=== PATIENT | male | born 1965 | race Caucasian/White ===

== ENCOUNTER 2017-12-31 13:04 | Day surgery (SDC) | payer OTHER ==
[~2017-12-31 13:04] MED LIST: CEFAZOLIN 2 GM/50 ML (PMX) 50 ML IVPB; DEXAMETHASONE 4 MG/ML 1 ML INJ; METOCLOPRAMIDE 10 MG INJ; SOD CHLORIDE 0.9% 1,000 ML IV
[2017-12-31] MEDS ORDERED: LIDOCAINE 2% (SDV) 5 ML INJ (15:51)
[2017-12-31] MEDS ORDERED: FENTAnyl 50 MCG/ML VIAL ×2 (15:51→17:41)
[2017-12-31] MEDS ORDERED: PROPOFOL 20 ML (15:51)
[2017-12-31] MEDS ORDERED: MIDAZOLAM 1 MG/ML 2 ML INJ (15:51)
[2017-12-31] MEDS ORDERED: ONDANSETRON 4 MG INJ (15:54)
[2017-12-31] MEDS ORDERED: hydrALAzine 20 MG INJ IV (16:30)
[2017-12-31] MEDS ORDERED: ONDANSETRON 4 MG INJ IV (16:30)
[2017-12-31] MEDS ORDERED: IPRATROPIUM (NEB) 0.5 MG/2.5 ML AMP HHN (16:30)
[2017-12-31] MEDS ORDERED: LABETALOL HCL 20MG INJ IV (16:30)
[2017-12-31] MEDS ORDERED: LEVALBUTEROL (NEB) 1.25 MG/0.5 ML AMP HHN (16:30)
[2017-12-31] MEDS ORDERED: HYDROmorphONE 1 MG/5 ML IV SYRINGE IV (16:30)
[2017-12-31] MEDS ORDERED: FENTAnyl 50 MCG/ML VIAL IV (16:30)
[2017-12-31] MEDS ORDERED: MEPERIDINE 25 MG INJ IV (16:30)
[2017-12-31] MEDS ORDERED: DIPHENHYDRAMINE 50 MG INJ IV (16:30)
[2017-12-31] MEDS ORDERED: KETOROLAC 30 MG INJ IV (16:30)
[2017-12-31] MEDS ORDERED: BUPIVACAINE 0.25% (MPF) 30 ML INJ (16:43)
[2017-12-31] MEDS ORDERED: ROPIVACAINE 0.5 % 30 ML VIAL ×2 (17:50→17:53)
[2017-12-31] MEDS ORDERED: EPINEPHrine 1 MG INJ (17:54)
[2017-12-31] MEDS: HYDROmorphONE 1 MG/5 ML IV SYRINGE IV ×2 (19:20→19:27)
[2017-12-31] MEDS: FENTAnyl 50 MCG/ML VIAL IV ×2 (19:21→19:28)
[2017-12-31] MEDS: HYDROCODONE/APAP (5/325) TAB PO (19:28)
== END 2017-12-31 19:45 | disposition home or self-care (01) ==
LOC: SDS 13:04
DX: D23.4 Other benign neoplasm of skin of scalp and neck (principal); D17.5 Benign lipomatous neoplasm of intra-abdominal organs
CPT/HCPCS: 14001; 88307